=== PATIENT | female | born 2000 | race Native Hawaiian/Other Pacific Islander ===

== ENCOUNTER 2019-05-16 18:31 | Emergency (ER) | payer OTHER ==
[~2019-05-16] VITALS: Ht 152.4 cm; Wt 47.6 kg
[2019-05-16 19:00] VITALS: TEMP 98.2
[2019-05-16 20:54] LABS: PLATELET COUNT 295 K/uL (152-353)
[2019-05-16 21:12] LABS: POTASSIUM 3.6 mmol/L (3.6-5.2)
[2019-05-17 07:37] VITALS: BP 106/59
== END 2019-05-17 07:46 | disposition other institution (70) ==
LOC: ED 18:31
PROVIDERS: Student in an Organized Health Care Education/Training Program
DX: F91.8 Other conduct disorders (principal); F23 Brief psychotic disorder; R00.0 Tachycardia, unspecified
CPT/HCPCS: 36415; 80053; 80307; 80329; 81000; 81025; 84443; 85027; 93005; 96372; 99285; J3486

== ENCOUNTER 2019-05-30 01:19 | Emergency (ER) | payer OTHER ==
[~2019-05-30] VITALS: Ht 152.4 cm; Wt 47.6 kg
[2019-05-30 02:30] VITALS: BP 111/66; TEMP 98.1
== END 2019-05-30 02:30 | disposition home or self-care (01) ==
LOC: ED 01:19
DX: J06.9 Acute upper respiratory infection, unspecified (principal); J40 Bronchitis, not specified as acute or chronic; F17.210 Nicotine dependence, cigarettes, uncomplicated
CPT/HCPCS: 87502; 87651; 99282; 99283

== ENCOUNTER 2021-05-12 17:17 | Emergency (ER) | payer OTHER ==
[~2021-05-12] VITALS: Ht 152.4 cm; Wt 47.6 kg
[2021-05-12 17:47] LABS: PLATELET COUNT 307 K/uL (152-353)
[2021-05-12 17:57] LABS: POTASSIUM 3.3 mmol/L (3.6-5.2)
[2021-05-12 20:18] VITALS: BP 100/56; TEMP 98.1
== END 2021-05-12 20:18 | disposition home or self-care (01) ==
LOC: ED 17:17
PROVIDERS: Hospitalist
DX: R07.89 Other chest pain (principal); F15.10 Other stimulant abuse, uncomplicated; K21.9 Gastro-esophageal reflux disease without esophagitis
CPT/HCPCS: 36415; 80053; 80307; 80320; 80329; 81000; 81025; 83605; 84484; 85027; 93005; 96360; 96375; 99285; J2405

== ENCOUNTER 2021-05-14 14:59 | Emergency (ER) | payer OTHER ==
[~2021-05-14] VITALS: Ht 152.4 cm; Wt 47.6 kg
[2021-05-14 15:00] VITALS: TEMP 97.7
[2021-05-14 15:24] LABS: PLATELET COUNT 314 K/uL (152-353)
[2021-05-14 16:15] VITALS: BP 126/78
== END 2021-05-14 16:17 | disposition home or self-care (01) ==
LOC: ED 14:59
PROVIDERS: Family Medicine
DX: R07.89 Other chest pain (principal); K21.9 Gastro-esophageal reflux disease without esophagitis
CPT/HCPCS: 80053; 82550; 84484; 85027; 93005; 99283

== ENCOUNTER 2021-10-29 18:16 | Emergency (ER) | payer OTHER ==
[~2021-10-29] VITALS: Ht 152.4 cm; Wt 47.6 kg
[2021-10-29 18:18] VITALS: BP 102/69; TEMP 97.6
[2021-10-29 18:49] LABS: PLATELET COUNT 313 K/uL (152-353)
== END 2021-10-29 21:03 | disposition home or self-care (01) ==
LOC: ED 18:16
PROVIDERS: Emergency Medicine Emergency Medical Services
DX: N39.0 Urinary tract infection, site not specified (principal); F15.10 Other stimulant abuse, uncomplicated
CPT/HCPCS: 36415; 80048; 80307; 81000; 81025; 83735; 85027; 93005; 99283